=== PATIENT | female | born 1975 | race Caucasian/White ===

== ENCOUNTER → 2018-07-07 | Outpatient (CLI) | payer OTHER ==
--- NOTE | 2018-07-08 10:24 | MM ---
Reason for exam: screening (asymptomatic). Last mammogram was performed 2 years ago. History: Patient history of other cancer and had first child at age 34. Took hormonal contraceptives for 13 years beginning at age 18. Physical Findings: A clinical breast exam by your physician is recommended on an annual basis and results should be correlated with mammographic findings. MG Screening Mammo w CAD Bilateral CC and MLO view(s) were taken. Prior study comparison: July 06, 2016, bilateral MG screening mammo w CAD. There are scattered fibroglandular densities. Asymmetric breast tissue in left retroglandular breast. This finding is changed when compared with previous exams. ASSESSMENT: Incomplete: need additional imaging evaluation, BI-RAD 0 RECOMMENDATION: Ultrasound of the left breast. [facility] will attempt to contact patient to return for ultrasound.
== END | disposition home or self-care (01) ==
LOC: RADMAMWWP 15:58
PROVIDERS: ATTEND Obstetrics & Gynecology
DX: Z12.31 Encounter for screening mammogram for malignant neoplasm of breast (principal)
CPT/HCPCS: 77067

== ENCOUNTER → 2018-07-17 | Outpatient (CLI) | payer OTHER ==
--- NOTE | 2018-07-17 09:55 | USB ---
Reason for exam: additional evaluation requested from abnormal screening. History: Patient has history of other cancer at age 31 and had first child at age 34. Family history of breast cancer in maternal grandmother, breast cancer in maternal aunt, and breast cancer in maternal cousin. Took hormonal contraceptives for 13 years beginning at age 18. Physical Findings: Nurse Summary: all soft, nodular movable (nurse ts). US Breast Workup LT Left complete breast ultrasound includes all four quadrants, the retroareolar region and axilla. Finding demonstrates an axilla node and a 0.7 x 0.6 x 0.8cm benign node at 3 o'clock. These results were verbally communicated with the patient and result sheet given to the patient on 07/17/18. ASSESSMENT: Benign, BI-RAD 2 RECOMMENDATION: Return to routine screening mammogram schedule for both breasts.
== END | disposition home or self-care (01) ==
LOC: RADUSWWP 08:54
PROVIDERS: ATTEND Obstetrics & Gynecology
DX: R92.8 Other abnormal and inconclusive findings on diagnostic imaging of breast (principal)

== ENCOUNTER → 2019-08-21 | Outpatient (CLI) | payer OTHER ==
--- NOTE | 2019-08-24 14:17 | MM ---
Reason for exam: screening (asymptomatic). Last mammogram was performed 1 year and 1 month ago. History: Patient has history of other cancer at age 31 and had first child at age 34. Family history of breast cancer in maternal grandmother, breast cancer in maternal aunt, and breast cancer in maternal cousin. Took hormonal contraceptives for 13 years beginning at age 18. Physical Findings: A clinical breast exam by your physician is recommended on an annual basis and results should be correlated with mammographic findings. MG 3D Screening Mammo W/Cad Bilateral CC and MLO view(s) were taken. Prior study comparison: July 07, 2018, bilateral MG screening mammo w CAD. July 06, 2016, bilateral MG screening mammo w CAD. The breast tissue is heterogeneously dense. This may lower the sensitivity of mammography. Finding #1: There is a circumscribed round mass located 4-6 cm from the nipple in the upper inner quadrant, anterior position of the right breast. Finding #2: There are typically benign round calcifications in both breasts. There is a chronic nodularity in the left breast posterior, stable. ASSESSMENT: Incomplete: need additional imaging evaluation, BI-RAD 0 RECOMMENDATION: Ultrasound of the right breast. If lesion persists on supplemental views, image directed ultrasound is recommended. [facility] will attempt to contact patient to return for supplemental views and ultrasound if indicated.
== END | disposition home or self-care (01) ==
LOC: RADMAMWWP 13:52
PROVIDERS: ATTEND Obstetrics & Gynecology
DX: Z12.31 Encounter for screening mammogram for malignant neoplasm of breast (principal)
CPT/HCPCS: 77063; 77067

== ENCOUNTER → 2019-09-04 | Outpatient (CLI) | payer OTHER ==
--- NOTE | 2019-09-04 11:52 | USB ---
Reason for exam: additional evaluation requested from abnormal screening. History: Patient has history of other cancer at age 31 and had first child at age 34. Family history of breast cancer in maternal grandmother, breast cancer in maternal aunt, and breast cancer in maternal cousin. Took hormonal contraceptives for 13 years beginning at age 18. Physical Findings: Nurse did not find any significant physical abnormalities on exam. US Breast Workup Limited RT Technologist: Jeanne Sagastume Left limited breast ultrasound including focal area of concern, retroareolar and axilla demonstrates a 0.2 x 0.3 x 0.3cm circular lesion at 1 o'clock, possibly inflammatory cyst versus developing oil cyst. 6 month precautionary follow up ultrasound recommended. These results were verbally communicated with the patient and result sheet given to the patient on 09/04/19. ASSESSMENT: Probably benign, BI-RAD 3 RECOMMENDATION: Ultrasound of the right breast in 6 months.
== END | disposition home or self-care (01) ==
LOC: RADUSWWP 10:02
PROVIDERS: ATTEND Obstetrics & Gynecology
DX: R92.8 Other abnormal and inconclusive findings on diagnostic imaging of breast (principal)

== ENCOUNTER → 2020-03-24 | Outpatient (CLI) | payer OTHER ==
--- NOTE | 2020-03-25 08:07 | USB ---
Reason for exam: follow-up at short interval from prior study. History: Patient has history of other cancer at age 31 and had first child at age 34. Family history of breast cancer in maternal grandmother, breast cancer in maternal aunt, and breast cancer in maternal cousin. Took hormonal contraceptives for 13 years beginning at age 18. Physical Findings: Nurse did not find any significant physical abnormalities on exam. US Breast Limited RT Technologist: Jeanne Sagastume Right limited breast ultrasound including focal area of concern, retroareolar and axilla demonstrates no cystic or solid lesion seen. These results were verbally communicated with the patient and result sheet given to the patient on 03/24/20. ASSESSMENT: Benign, BI-RAD 2 RECOMMENDATION: Follow-up diagnostic mammogram of both breasts in 6 months. Ultrasound of the right breast in 6 months.
== END | disposition home or self-care (01) ==
LOC: RADUSWWP 14:28
PROVIDERS: ATTEND Obstetrics & Gynecology
DX: R92.8 Other abnormal and inconclusive findings on diagnostic imaging of breast (principal)

== ENCOUNTER → 2020-11-03 | Outpatient (CLI) | payer MEDICAID ==
--- NOTE | 2020-11-03 11:33 | MM ---
Reason for exam: additional evaluation requested from prior study. Last mammogram was performed 1 year and 2 months ago. History: Patient has history of other cancer at age 33 and had first child at age 34. Family history of breast cancer in maternal grandmother, breast cancer in maternal aunt, and breast cancer in maternal cousin. Took hormonal contraceptives for 13 years beginning at age 18. Physical Findings: Nurse Summary: 0.5cm nodule in the right breast at 9 o'clock (nurse mj). MG 3D Diag Mammo W/Cad JORDI Bilateral CC and MLO view(s) were taken. LOREDO view(s) were taken of the right breast. XCCL view(s) were taken of the left breast. Prior study comparison: September 04, 2019, right breast US breast workup limited RT. August 21, 2019, bilateral MG 3d screening mammo w/cad. July 07, 2018, bilateral MG screening mammo w CAD. July 06, 2016, bilateral MG screening mammo w CAD. There is no discrete abnormality including area of concern marked right breast. No significant new findings when compared with previous films. These results were verbally communicated with the patient and result sheet given to the patient on 11/03/20. ASSESSMENT: Incomplete: need additional imaging evaluation, BI-RAD 0 RECOMMENDATION: Ultrasound of the right breast.
--- NOTE | 2020-11-03 11:34 | USB ---
Reason for exam: additional evaluation requested from abnormal screening. History: Patient has history of other cancer at age 33 and had first child at age 34. Family history of breast cancer in maternal grandmother, breast cancer in maternal aunt, and breast cancer in maternal cousin. Took hormonal contraceptives for 13 years beginning at age 18. US Breast Limited RT Technologist: Jeanne Sagastume Right limited breast ultrasound including focal area of concern, retroareolar and axilla demonstrates a 0.5 x 0.6 x 0.2cm lesion at 9 o'clock correlates with palpable. Scanned 8-9 o'clock. These results were verbally communicated with the patient and result sheet given to the patient on 11/03/20. ASSESSMENT: Probably benign, BI-RAD 3 RECOMMENDATION: Routine screening mammogram of both breasts in 1 year. Manage patient on a clinical basis.
== END | disposition home or self-care (01) ==
LOC: RADMAMWWP 08:25
PROVIDERS: ATTEND Obstetrics & Gynecology
DX: R92.8 Other abnormal and inconclusive findings on diagnostic imaging of breast (principal); Z80.3 Family history of malignant neoplasm of breast
CPT/HCPCS: 77062; 77066

== ENCOUNTER → 2022-08-23 | Outpatient (CLI) | payer OTHER ==
--- NOTE | 2022-08-24 09:17 | MM ---
Reason for Exam: Screening (asymptomatic). Last mammogram was performed 1 year(s) and 9 month(s) ago. Patient History: Menarche at age 15. First Full-Term at age 34. Late child-bearing (after 32). Other cancer, age 33. Hormonal Contraceptives for 13 years from age 18 until age 31. Maternal grandmother had breast cancer at or over age 50. Maternal cousin had breast cancer. Maternal aunt had breast cancer at or over age 50. Last menstrual period: 08/13/2022 Risk Values: Yen 5 year model risk: 1.1%. NCI Lifetime model risk: 13.0%. Prior Study Comparison: 07/07/2018 Bilateral Screening Mammogram, [facility]. 08/21/2019 Bilateral Screening Mammogram, [facility]. 11/03/2020 Bilateral Diagnostic Mammogram, [facility]. Tissue Density: There are scattered fibroglandular densities. Findings: Analyzed By CAD. There is no suspicious group of microcalcifications or new suspicious mass in either breast. Benign calcifications within both breasts. Overall Assessment: Benign, BI-RAD 2 Management: Screening Mammogram of both breasts in 1 year. A clinical breast exam by your physician is recommended on an annual basis and results should be correlated with mammographic findings. Electronically signed and approved by: Jarrod Cat D.O.
== END | disposition home or self-care (01) ==
LOC: RADMAMWWP 11:02
PROVIDERS: ATTEND Obstetrics & Gynecology
DX: Z12.31 Encounter for screening mammogram for malignant neoplasm of breast (principal); Z80.3 Family history of malignant neoplasm of breast
CPT/HCPCS: 77063; 77067